=== PATIENT | male | born 1950 | race Caucasian/White ===

== ENCOUNTER 2018-09-25 06:25 | Inpatient (IN) ==
[~2018-09-25 06:25] MED LIST: ASPIRIN 325 MG TABLET PO ONE; DIAZEPAM 5 MG TABLET PO ONE; MAGNESIUM SULF RIDER 2 GM in PREMIX 1 EACH IV PRN; POTASSIUM CHLORIDE RIDER 10 MEQ in PREMIX 1 EACH IV PRN; SODIUM CHLORIDE 0.9% 1,000 ML IV SCH; diphenhydrAMINE CAP 25 MG CAPSULE PO ONE
[2018-09-25] MEDS ORDERED: fentaNYL 100 MCG/2 ML VIAL ONE (08:55)
[2018-09-25] MEDS ORDERED: LIDOCAINE 1% 20 ML VIAL ONE (08:55)
[2018-09-25] MEDS ORDERED: MIDAZOLAM 2 MG/2 ML VIAL ONE (08:55)
[2018-09-25] MEDS ORDERED: diphenhydrAMINE CAP 25 MG CAPSULE ONE (09:23)
[2018-09-25] MEDS ORDERED: ASPIRIN 325 MG TABLET ONE (09:23)
[2018-09-25] MEDS ORDERED: DIAZEPAM 5 MG TABLET ONE (09:23)
[2018-09-25] MEDS ORDERED: HEPARIN 5,000 UNIT/1 ML VIAL ONE (10:02)
[2018-09-25] MEDS ORDERED: MAGNESIUM SULF RIDER 4 GM in PREMIX 1 EACH IV PRN (10:54)
[2018-09-25] MEDS ORDERED: traZODone 50 MG TABLET PO PRN (10:54)
[2018-09-25] MEDS ORDERED: ONDANSETRON 4 MG/2 ML VIAL IV PRN (10:54)
[2018-09-25] MEDS ORDERED: MAGNESIUM SULF RIDER 2 GM in PREMIX 1 EACH IV PRN (10:54)
[2018-09-25] MEDS ORDERED: ASPIRIN CHEW 81 MG TABLET PO ONE (11:08)
[2018-09-25] MEDS ORDERED: CLORAZEPATE 3.75 MG TABLET PO PRN (11:23)
[2018-09-25] MEDS ORDERED: GLUCAGON 1 MG VIAL IM PRN (11:26)
[2018-09-25] MEDS ORDERED: DEXTROSE 50% 25 GM/50 ML VIAL IV PRN (11:26)
[2018-09-25] MEDS ORDERED: MECLIZINE 25 MG TABLET PO PRN (11:30)
[2018-09-25] MEDS: METOPROLOL TARTRATE 25 MG TABLET PO SCH ×2 (11:50→21:16)
[2018-09-25] MEDS: VENLAFAXINE 75 MG TABLET PO SCH ×2 (11:50→21:15)
[2018-09-25 11:51] LABS: Risk Ratio 4.74; VLDL CHOLESTEROL 28.8 MG/DL
[2018-09-25] MEDS ORDERED: MAGNESIUM HYDROXIDE SUSP 30 ML UDCUP PO PRN (13:33)
[2018-09-25] MEDS: SODIUM CHLORIDE 0.9% 1,000 ML IV SCH (14:14)
[2018-09-25] MEDS ORDERED: CHLORHEXIDINE 4% SOLN 118 ML BOTTLE TOP SCH (15:00)
[2018-09-25] MEDS: GABAPENTIN 100 MG CAPSULE PO SCH (21:15)
[2018-09-25] MEDS: ROSUVASTATIN 10 MG TABLET PO SCH (21:16)
[2018-09-25] MEDS: ENOXAPARIN 30 MG/0.3 ML SYRINGE SUBCUT SCH (21:16)
[2018-09-25] MEDS: CHLORHEXIDINE 0.12% ORAL RINSE 60 ML BOTTLE SWISH/SPIT SCH (21:16)
[2018-09-25] MEDS: diphenhydrAMINE CAP 25 MG CAPSULE PO SCH (21:17)
[2018-09-26 04:00] LABS: ABG Base Excess 0.5 MMOL/L (-2.5-2.5); ABG HCO3 24.8 MMOL/L (20-26); ABG Oxygen Saturation 97.4 % (95-100); ABG PCO2 43.5 MM HG (35-48); ABG PH 7.381 (7.35-7.45); ABG PO2 91.1 MM HG (80-95); ABG TCO2 22.7 MMOL/L (23-27); Allen Test Positive; Pt O2 Delivery Device Room Air
[2018-09-26 04:24] LABS: Basophils % 0.3 % (0.0-0.8); Eosinophils # 0.1 10*3/uL (0.0-0.87); Eosinophils % 1.6 % (0.00-10.9); Hematocrit 38.5 VOL% (42.0-52.0); Hemoglobin 12.2 GM/DL (14.0-18.0); Immature Granulocytes % 0.1 %; Immature Granulocytes Absolute 0.01 #; Lymphocytes # 2.4 10*3/uL (1.4-4.0); Lymphocytes % 34.7 % (21.2-54.2); Mean Corpuscular HGB Conc 31.7 GM/DL (32-36); Mean Corpuscular Volume 92.1 FL (87-102); Mean Platelet Volume 10.1 FL (9.6-12.0); Monocytes % 7.3 % (1.7-12.7); Platelet Count 235 T/CUMM (130-400); Red Blood Count 4.18 MC/CUMM (3.8-5.5); White Blood Count 6.8 T/CUMM (4-12)
[2018-09-26 04:43] LABS: Alanine Aminotransferase 34 U/L (16-61); Albumin 3.1 G/DL (3.4-5.0); Alkaline Phosphatase 70 U/L (45-117); Aspartate Amino Transferase 22 U/L (0-37); Bilirubin,Total < 0.39 MG/DL (0.2-1.0); Blood Urea Nitrogen 18 MG/DL (7-18); Calcium 8.3 MG/DL (8.5-10.1); Glucose 95 MG/DL (74-106); Osmolality,Calculated 282.3 MOS/KG (273-304); Total Protein 6.2 G/DL (6.4-8.3)
[2018-09-26] MEDS ORDERED: CEFUROXIME INJ 1,500 MG in SODIUM CHLORIDE 0.9% 100 ML IV ONE (06:00)
[2018-09-26] MEDS ORDERED: ALPRAZolam 0.25 MG TABLET PO PRN ×2 (08:26→17:03)
[2018-09-26] MEDS: ENOXAPARIN 30 MG/0.3 ML SYRINGE SUBCUT SCH (08:47)
[2018-09-26] MEDS: METOPROLOL TARTRATE 25 MG TABLET PO SCH ×2 (08:47→21:45)
[2018-09-26] MEDS: VITAMIN E 400 UNIT CAPSULE PO SCH (08:55)
[2018-09-26] MEDS: VENLAFAXINE 75 MG TABLET PO SCH ×2 (08:55→21:43)
[2018-09-26] MEDS: amLODIPine 5 MG TABLET PO SCH (08:56)
[2018-09-26] MEDS: GABAPENTIN 100 MG CAPSULE PO SCH ×2 (08:56→21:44)
[2018-09-26] MEDS ORDERED: ASPIRIN CHEW 81 MG TABLET PO SCH (09:00)
[2018-09-26] MEDS ORDERED: PANTOPRAZOLE 40 MG TABLET PO SCH (09:00)
[2018-09-26] MEDS: CHLORHEXIDINE 0.12% ORAL RINSE 60 ML BOTTLE SWISH/SPIT SCH (09:02)
[2018-09-26] MEDS: PANTOPRAZOLE 40 MG TABLET PO SCH (09:19)
[2018-09-26] MEDS: SODIUM CHLORIDE 0.9% 1,000 ML IV SCH (12:35)
[2018-09-26] MEDS ORDERED: CHLORHEXIDINE 4% SOLN 118 ML BOTTLE TOP SCH (15:00)
[2018-09-26] MEDS ORDERED: MAGNESIUM SULF RIDER 2 GM in PREMIX 1 EACH IV PRN (16:57)
[2018-09-26] MEDS ORDERED: POTASSIUM CHLORIDE RIDER 10 MEQ in PREMIX 1 EACH IV PRN (16:57)
[2018-09-26] MEDS ORDERED: TICAGRELOR 90 MG TABLET PO ONE (19:00)
[2018-09-26] MEDS: diphenhydrAMINE CAP 25 MG CAPSULE PO SCH (21:44)
[2018-09-26] MEDS: ROSUVASTATIN 10 MG TABLET PO SCH (21:44)
[2018-09-27] MEDS: SODIUM CHLORIDE 0.45% 1,000 ML IV SCH ×2 (03:19→12:33)
[2018-09-27 05:06] LABS: Basophils % 0.5 % (0.0-0.8); Eosinophils # 0.2 10*3/uL (0.0-0.87); Eosinophils % 2.9 % (0.00-10.9); Hematocrit 39.7 VOL% (42.0-52.0); Hemoglobin 12.5 GM/DL (14.0-18.0); Immature Granulocytes % 0.5 %; Immature Granulocytes Absolute 0.04 #; Lymphocytes # 2.2 10*3/uL (1.4-4.0); Mean Corpuscular HGB Conc 31.5 GM/DL (32-36); Mean Corpuscular Volume 91.7 FL (87-102); Mean Platelet Volume 9.8 FL (9.6-12.0); Neutrophils % 58.1 % (38.7-73.9); Platelet Count 247 T/CUMM (130-400); Red Blood Count 4.33 MC/CUMM (3.8-5.5); Red Cell Distribution Width 12.8 % (9.3-17.3); White Blood Count 7.7 T/CUMM (4-12)
[2018-09-27] MEDS ORDERED: LACTATED RINGERS 1,000 ML IV SCH (05:30)
[2018-09-27] MEDS ORDERED: DIAZEPAM 5 MG TABLET PO ONE (05:30)
[2018-09-27] MEDS ORDERED: diphenhydrAMINE CAP 25 MG CAPSULE PO ONE (05:30)
[2018-09-27 05:35] LABS: Calcium 8.6 MG/DL (8.5-10.1); Osmolality,Calculated 283.1 MOS/KG (273-304)
[2018-09-27] MEDS ORDERED: TICAGRELOR 90 MG TABLET PO SCH (06:00)
[2018-09-27] MEDS ORDERED: HEPARIN/NACL 0.9% 2 UNITS/ML 1,000 ML IV ONE (06:55)
[2018-09-27] MEDS ORDERED: LIDOCAINE 1% 20 ML VIAL ONE (06:55)
[2018-09-27] MEDS ORDERED: fentaNYL 100 MCG/2 ML VIAL ONE (07:20)
[2018-09-27] MEDS ORDERED: MIDAZOLAM 2 MG/2 ML VIAL ONE ×2 (07:20→07:35)
[2018-09-27] MEDS ORDERED: ENOXAPARIN 60 MG/0.6 ML SYRINGE ONE (07:37)
[2018-09-27] MEDS ORDERED: ADENOSINE 90 MG/30 ML VIAL IV ONE (07:45)
[2018-09-27] MEDS ORDERED: NITROGLYCERIN DRIP 50 MG/250 ML BOTTLE IV ONE (08:21)
[2018-09-27] MEDS ORDERED: ACETAMINOPHEN 325 MG TABLET PO PRN (09:00)
[2018-09-27] MEDS: METOPROLOL TARTRATE 25 MG TABLET PO SCH ×2 (12:30→20:49)
[2018-09-27] MEDS: VITAMIN E 400 UNIT CAPSULE PO SCH (12:30)
[2018-09-27] MEDS: amLODIPine 5 MG TABLET PO SCH (12:30)
[2018-09-27] MEDS: VENLAFAXINE 75 MG TABLET PO SCH ×2 (12:30→20:49)
[2018-09-27] MEDS: GABAPENTIN 100 MG CAPSULE PO SCH ×2 (12:31→20:49)
[2018-09-27] MEDS: PANTOPRAZOLE 40 MG TABLET PO SCH (12:31)
[2018-09-27] MEDS: ASPIRIN EC 81 MG TABLET PO SCH (12:33)
[2018-09-27] MEDS: ROSUVASTATIN 10 MG TABLET PO SCH (20:48)
[2018-09-27] MEDS: diphenhydrAMINE CAP 25 MG CAPSULE PO SCH (20:49)
[2018-09-28 04:34] LABS: Basophils % 0.5 % (0.0-0.8); Eosinophils # 0.2 10*3/uL (0.0-0.87); Eosinophils % 2.5 % (0.00-10.9); Hematocrit 41.8 VOL% (42.0-52.0); Immature Granulocytes % 0.4 %; Immature Granulocytes Absolute 0.03 #; Lymphocytes # 2.7 10*3/uL (1.4-4.0); Mean Corpuscular HGB Conc 31.1 GM/DL (32-36); Mean Corpuscular Volume 93.1 FL (87-102); Monocytes % 8.3 % (1.7-12.7); Neutrophils % 53.3 % (38.7-73.9); Platelet Count 254 T/CUMM (130-400); Red Blood Count 4.49 MC/CUMM (3.8-5.5); Red Cell Distribution Width 13.1 % (9.3-17.3); White Blood Count 7.7 T/CUMM (4-12)
[2018-09-28 04:54] LABS: Calcium 8.5 MG/DL (8.5-10.1); Osmolality,Calculated 282.1 MOS/KG (273-304)
[2018-09-28] MEDS: METOPROLOL TARTRATE 25 MG TABLET PO SCH (09:15)
[2018-09-28] MEDS: GABAPENTIN 100 MG CAPSULE PO SCH (09:15)
[2018-09-28] MEDS: PANTOPRAZOLE 40 MG TABLET PO SCH (09:15)
[2018-09-28] MEDS: amLODIPine 5 MG TABLET PO SCH (09:15)
[2018-09-28] MEDS: VENLAFAXINE 75 MG TABLET PO SCH (09:15)
[2018-09-28] MEDS: ASPIRIN EC 81 MG TABLET PO SCH (09:16)
[2018-09-28] MEDS: VITAMIN E 400 UNIT CAPSULE PO SCH (09:27)
[2018-09-28 16:18] VITALS: BP 103/61
[2018-09-28] MEDS ORDERED: ASCORBIC ACID 500 MG TABLET PO SCH (21:00)
[2018-09-28] MEDS ORDERED: METOPROLOL TARTRATE 25 MG TABLET PO SCH (21:00)
[2018-09-29] MEDS ORDERED: amLODIPine 5 MG TABLET PO SCH (09:00)
[2018-09-29] MEDS ORDERED: ASPIRIN EC 325 MG TABLET PO SCH (09:00)
== END 2018-09-28 16:17 | disposition home or self-care, planned readmission (81) | DRG 251 ==
LOC: N.CL 06:25 → N.TELEN 11:02
PROVIDERS: ADMIT Internal Medicine Cardiovascular Disease; ATTEND Internal Medicine Cardiovascular Disease

== ENCOUNTER 2018-10-01 06:00 | Inpatient (IN) ==
[2018-10-01] MEDS ORDERED: DEXTROSE 50% 25 GM/50 ML VIAL IV PRN (06:28)
[2018-10-01] MEDS ORDERED: GLUCAGON 1 MG VIAL IM PRN (06:28)
[2018-10-01] MEDS ORDERED: ALPRAZolam 0.25 MG TABLET PO PRN (06:32)
[2018-10-01] MEDS ORDERED: ACETAMINOPHEN 325 MG TABLET PO PRN (06:32)
[2018-10-01 09:16] LABS: Basophils % 0.4 % (0.0-0.8); Eosinophils # 0.2 10*3/uL (0.0-0.87); Eosinophils % 2.3 % (0.00-10.9); Hematocrit 41.6 VOL% (42.0-52.0); Hemoglobin 13.3 GM/DL (14.0-18.0); Immature Granulocytes % 0.4 %; Immature Granulocytes Absolute 0.03 #; Lymphocytes # 2.3 10*3/uL (1.4-4.0); Lymphocytes % 30.9 % (21.2-54.2); Mean Corpuscular Volume 92.2 FL (87-102); Mean Platelet Volume 10.1 FL (9.6-12.0); Monocytes % 7.1 % (1.7-12.7); Neutrophils % 58.9 % (38.7-73.9); Platelet Count 270 T/CUMM (130-400); Red Blood Count 4.51 MC/CUMM (3.8-5.5); Red Cell Distribution Width 13.2 % (9.3-17.3); White Blood Count 7.5 T/CUMM (4-12)
[2018-10-01 09:34] LABS: ABG Base Excess 2.9 MMOL/L (-2.5-2.5); ABG Oxygen Saturation 97.3 % (95-100); ABG PCO2 39.2 MM HG (35-48); ABG PH 7.446 (7.35-7.45); ABG TCO2 23.6 MMOL/L (23-27)
[2018-10-01 09:36] LABS: Albumin 3.9 G/DL (3.4-5.0); Bilirubin,Total 0.4 MG/DL (0.2-1.0); Calcium 9.2 MG/DL (8.5-10.1); Osmolality,Calculated 280.5 MOS/KG (273-304); Total Protein 7.6 G/DL (6.4-8.3)
[2018-10-01] MEDS: GABAPENTIN 100 MG CAPSULE PO SCH (09:37)
[2018-10-01] MEDS: ROSUVASTATIN 10 MG TABLET PO SCH (09:37)
[2018-10-01] MEDS: ASCORBIC ACID 500 MG TABLET PO SCH ×2 (09:37→21:34)
[2018-10-01] MEDS: VITAMIN E 400 UNIT CAPSULE PO SCH (09:37)
[2018-10-01] MEDS: amLODIPine 5 MG TABLET PO SCH (09:38)
[2018-10-01] MEDS: ASPIRIN EC 325 MG TABLET PO SCH (09:38)
[2018-10-01] MEDS: METOPROLOL TARTRATE 25 MG TABLET PO SCH ×2 (09:38→21:34)
[2018-10-01] MEDS: VENLAFAXINE XR 75 MG CAPSULE PO SCH (09:38)
[2018-10-01] MEDS: PANTOPRAZOLE 40 MG TABLET PO SCH (09:38)
[2018-10-01] MEDS: CHLORHEXIDINE 0.12% ORAL RINSE 60 ML BOTTLE SWISH/SPIT SCH ×2 (09:40→21:38)
[2018-10-01] MEDS: CHLORHEXIDINE 4% SOLN 118 ML BOTTLE TOP SCH ×2 (15:00→21:39)
[2018-10-01] MEDS ORDERED: DIAZEPAM 5 MG TABLET PO ONE (15:05)
[2018-10-01] MEDS ORDERED: FAMOTIDINE 20 MG TABLET PO ONE (15:05)
[2018-10-01] MEDS: SODIUM CHLORIDE 0.9% 1,000 ML IV SCH (16:00)
[2018-10-01] MEDS ORDERED: diphenhydrAMINE CAP 25 MG CAPSULE PO SCH (21:00)
[2018-10-02] MEDS ORDERED: VANCOMYCIN 1,000 MG VIAL ONE (04:24)
[2018-10-02] MEDS ORDERED: PAPAVERINE 60 MG/2 ML VIAL ONE (04:24)
[2018-10-02] MEDS: CHLORHEXIDINE 4% SOLN 118 ML BOTTLE TOP SCH (05:05)
[2018-10-02] MEDS ORDERED: HEPARIN/NACL 0.9% 2 UNITS/ML 500 ML IV ONE (05:24)
[2018-10-02] MEDS ORDERED: PHENYLEPHRINE DRIP 20 MG/250 ML PREMIX IV ONE (05:24)
[2018-10-02] MEDS ORDERED: CALCIUM CHLORIDE 1,000 MG/10 ML VIAL IV ONE (05:24)
[2018-10-02] MEDS ORDERED: EPINEPHrine 1 MG/ML VIAL ONE (05:25)
[2018-10-02] MEDS ORDERED: SUFentanil 250 MCG/5 ML AMP ONE (05:25)
[2018-10-02] MEDS ORDERED: ETOMIDATE 40 MG/20 ML VIAL IV ONE (05:26)
[2018-10-02] MEDS ORDERED: MIDAZOLAM 10 MG/2 ML VIAL ONE ×2 (05:26)
[2018-10-02] MEDS ORDERED: NITROGLYCERIN DRIP 50 MG/250 ML BOTTLE IV ONE (05:26)
[2018-10-02] MEDS ORDERED: AMINOCAPROIC ACID 5,000 MG/20 ML VIAL ONE (05:26)
[2018-10-02] MEDS ORDERED: VECURONIUM 10 MG VIAL IV ONE (05:26)
[2018-10-02] MEDS ORDERED: SODIUM CHLORIDE 0.9% 500 ML IV ONE (05:27)
[2018-10-02] MEDS ORDERED: SODIUM CHLORIDE 0.9% 1,000 ML IV ONE ×2 (05:27→12:05)
[2018-10-02] MEDS ORDERED: LACTATED RINGERS 1,000 ML IV ONE ×2 (05:27→12:05)
[2018-10-02] MEDS ORDERED: SODIUM CHLORIDE 0.9% 100 ML IV ONE ×2 (05:27→12:05)
[2018-10-02] MEDS ORDERED: FAMOTIDINE 20 MG TABLET PO ONE (05:30)
[2018-10-02] MEDS ORDERED: DIAZEPAM 5 MG TABLET PO ONE (05:30)
[2018-10-02] MEDS: amLODIPine 5 MG TABLET PO SCH ×2 (05:42→13:21)
[2018-10-02] MEDS: METOPROLOL TARTRATE 25 MG TABLET PO SCH ×2 (05:43→13:21)
[2018-10-02] MEDS ORDERED: CEFUROXIME INJ 1,500 MG in SYRINGE 1 EACH IV ONE (06:00)
[2018-10-02] MEDS: PANTOPRAZOLE 40 MG TABLET PO SCH (07:53)
[2018-10-02] MEDS: SODIUM CHLORIDE 0.9% 1,000 ML IV SCH (07:53)
[2018-10-02 07:55] LABS: ABG Base Excess 0.5 MMOL/L (-2.5-2.5); ABG HCO3 24.9 MMOL/L (20-26); ABG PCO2 37.6 MM HG (35-48); ABG PH 7.425 (7.35-7.45); ABG TCO2 21.6 MMOL/L (23-27); Glucose Heart Surgery 117 MG/DL (74-106); Hematocrit Heart Surgery 38.5 PERCENT (42-52); Hemoglobin Heart Surgery 12.5 G/DL (14.0-18.0); Ionized Calcium Arterial 1.12 MMOL/L (1.21-1.46); PCO2 Patient Temp Arterial 37.6 MMHG; PH Patient Temp Arterial 7.425; Patient Temperature 37 CELCIUS; Potassium Heart/CVR 3.6 MMOL/L (3.5-5.1); Sodium Heart/CVR 140 MMOL/L (135-145)
[2018-10-02] MEDS ORDERED: NITROPRUSSIDE 50 MG/2 ML VIAL ONE (08:11)
[2018-10-02] MEDS ORDERED: PHENYLEPHRINE DRIP 40 MG/250 ML PREMIX IV ONE (08:12)
[2018-10-02] MEDS ORDERED: ALBUMIN 5% 12.5 GM/250 ML VIAL IV ONE (08:12)
[2018-10-02] MEDS ORDERED: POTASSIUM CHLORIDE RIDER 100 ML IV ONE (08:12)
[2018-10-02 08:57] LABS: Apearance,Urine CLEAR (Clear); Bilirubin,Urine Negative (Negative); Blood, Urine Negative (Negative); Glucose,Urine (UA) Negative (Negative); Ketones,Urine Negative (Negative); Mucus,Urine Occasional /LPF (Occasional); Nitrite,Urine Negative (Negative); Protein,Urine Negative; RBC,Urine 6 /HPF (0-4); Urine Color Yellow (Yellow); Urine Specific Gravity 1.016 (1.001-1.035); Urine Urobilinogen < 2.0 EU/DL (0.2-1.0); WBC,Urine 2 /HPF (0-6)
[2018-10-02 09:24] LABS: Hematocrit Heart Surgery 27.4 PERCENT (42-52); Hemoglobin Heart Surgery 8.8 G/DL (14.0-18.0); PCO2 Patient Temp Venous 32.1 MM HG; PH Patient Temp Venous 7.477; PO2 Patient Temp Venous 37.8 MM HG; Potassium Heart/CVR 4.8 MMOL/L (3.5-5.1); VBG Base Excess 0.6 MEQ/L (0-4); VBG HCO3 24.8 MEQ/L (24-28); VBG PCO2 37.1 MMHG (41-51); VBG PH 7.432; VBG PO2 46.4 MMHG (17-40)
[2018-10-02 09:55] LABS: Hematocrit Heart Surgery 30.5 PERCENT (42-52); Hemoglobin Heart Surgery 9.8 G/DL (14.0-18.0); PCO2 Patient Temp Venous 29.9 MM HG; PH Patient Temp Venous 7.495; PO2 Patient Temp Venous 36.9 MM HG; Potassium Heart/CVR 4.8 MMOL/L (3.5-5.1); VBG Base Excess 0.4 MEQ/L (0-4); VBG HCO3 24.6 MEQ/L (24-28); VBG Oxygen Saturation 83.5 %; VBG PCO2 34.6 MMHG (41-51); VBG PH 7.45; VBG PO2 45.4 MMHG (17-40)
[2018-10-02] MEDS ORDERED: THROMBIN TOPICAL (RECOMBINANT) 5,000 UNIT VIAL TOP ONE (10:40)
[2018-10-02 11:07] LABS: ABG Base Excess -0.3 MMOL/L (-2.5-2.5); ABG HCO3 24.2 MMOL/L (20-26); ABG Oxygen Saturation 99.9 % (95-100); ABG PCO2 38.2 MM HG (35-48); ABG PH 7.409 (7.35-7.45); ABG TCO2 22.1 MMOL/L (23-27); Glucose Heart Surgery 239 MG/DL (74-106); Hematocrit Heart Surgery 29.8 PERCENT (42-52); Hemoglobin Heart Surgery 9.6 G/DL (14.0-18.0); Ionized Calcium Arterial 1.17 MMOL/L (1.21-1.46); PCO2 Patient Temp Arterial 38.2 MMHG; PH Patient Temp Arterial 7.409; Patient Temperature 37 CELCIUS; Potassium Heart/CVR 3.5 MMOL/L (3.5-5.1); Sodium Heart/CVR 141 MMOL/L (135-145)
[2018-10-02] MEDS ORDERED: DEXTROSE 5% KCL 20 MEQ 20 MEQ/1,000 ML BAG IV ONE (11:10)
[2018-10-02] MEDS ORDERED: SODIUM BICARBONATE 50 MEQ/50 ML VIAL IV ONE (11:10)
[2018-10-02] MEDS ORDERED: ALBUMIN 25% 25 GM/100 ML VIAL IV ONE (11:11)
[2018-10-02] MEDS ORDERED: PROTAMINE SULFATE 50 MG/5 ML VIAL IV ONE ×3 (11:11→12:30)
[2018-10-02] MEDS ORDERED: HEPARIN 10,000 UNIT/10 ML VIAL ONE (11:11)
[2018-10-02] MEDS ORDERED: methylPREDNISolone SOD SUC 1,000 MG/8 ML VIAL ONE (11:11)
[2018-10-02] MEDS ORDERED: FUROSEMIDE 20 MG/2 ML VIAL ONE (11:11)
[2018-10-02] MEDS ORDERED: PROTAMINE SULFATE 250 MG/25 ML VIAL IV ONE (11:11)
[2018-10-02] MEDS ORDERED: MAGNESIUM SULFATE 5 GM/10 ML VIAL IV ONE (11:11)
[2018-10-02] MEDS ORDERED: ESMOLOL 100 MG/10 ML VIAL IV ONE (12:05)
[2018-10-02] MEDS ORDERED: SEVOFLURANE 1 UNIT/15 MINUTE INH ONE (12:05)
[2018-10-02] MEDS ORDERED: ePHEDrine 50 MG/ML AMP ONE (12:05)
[2018-10-02] MEDS ORDERED: PHENYLEPHRINE 1 MG/10 ML SYRINGE IV ONE (12:05)
[2018-10-02] MEDS ORDERED: DEXTROSE 50% 25 GM/50 ML VIAL IV PRN ×2 (12:20)
[2018-10-02] MEDS ORDERED: ACETAMINOPHEN 650 MG SUPP RECTAL PRN (12:20)
[2018-10-02] MEDS ORDERED: MIDAZOLAM 10 MG/2 ML VIAL IV PRN (12:20)
[2018-10-02] MEDS ORDERED: PHENYLEPHRINE DRIP 40 MG/250 ML PREMIX IV PRN (12:20)
[2018-10-02] MEDS ORDERED: MORPHINE 4 MG/1 ML VIAL IV PRN (12:20)
[2018-10-02] MEDS ORDERED: ONDANSETRON 4 MG/2 ML VIAL IV PRN (12:20)
[2018-10-02] MEDS ORDERED: MORPHINE 10 MG/1 ML VIAL IV PRN (12:20)
[2018-10-02] MEDS ORDERED: NITROPRUSSIDE 100 MG in DEXTROSE 5% 250 ML IV PRN (12:20)
[2018-10-02] MEDS ORDERED: CALCIUM CHLORIDE 1,000 MG/10 ML SYRINGE IV PRN (12:20)
[2018-10-02] MEDS ORDERED: INSULIN REGULAR 100 UNIT/ML IV ONE (12:20)
[2018-10-02] MEDS ORDERED: MAGNESIUM SULF RIDER 2 GM in PREMIX 1 EACH IV PRN (12:20)
[2018-10-02] MEDS ORDERED: MAGNESIUM SULF RIDER 4 GM in PREMIX 1 EACH IV PRN (12:20)
[2018-10-02] MEDS ORDERED: VECURONIUM 10 MG VIAL IV PRN ×2 (12:20)
[2018-10-02] MEDS ORDERED: INSULIN REGULAR 100 UNIT/ML IV PRN (12:20)
[2018-10-02 12:23] LABS: ABG Base Excess -1.1 MMOL/L (-2.5-2.5); ABG HCO3 23.5 MMOL/L (20-26); ABG Oxygen Saturation 98.8 % (95-100); ABG TCO2 21.6 MMOL/L (23-27); Glucose Heart Surgery 174 MG/DL (74-106); Hematocrit Heart Surgery 29.6 PERCENT (42-52); Hemoglobin Heart Surgery 9.6 G/DL (14.0-18.0); Potassium Heart/CVR 3.2 MMOL/L (3.5-5.1)
[2018-10-02 12:25] LABS: Mean Corpuscular Volume 92.7 FL (87-102); Monocytes % 4.5 % (1.7-12.7); Red Cell Distribution Width 13.2 % (9.3-17.3)
[2018-10-02 12:30] LABS: Basophils % 0.3 % (0.0-0.8); Eosinophils # 0.1 10*3/uL (0.0-0.87); Eosinophils % 0.5 % (0.00-10.9); Hematocrit 29.2 VOL% (42.0-52.0); Immature Granulocytes % 0.5 %; Immature Granulocytes Absolute 0.07 #; Lymphocytes # 1.8 10*3/uL (1.4-4.0); Lymphocytes % 13.6 % (21.2-54.2); Mean Corpuscular HGB Conc 31.5 GM/DL (32-36); Mean Platelet Volume 10.2 FL (9.6-12.0); Neutrophils % 80.6 % (38.7-73.9)
[2018-10-02] MEDS ORDERED: SODIUM CHLORIDE 0.45% 1,000 ML IV SCH ×2 (12:30)
[2018-10-02] MEDS: LACTATED RINGERS 1,000 ML IV PRN ×2 (12:30→14:27)
[2018-10-02] MEDS ORDERED: INSULIN REGULAR DRIP 100 ML IV SCH (12:30)
[2018-10-02 12:31] LABS: Hemoglobin 9.2 GM/DL (14.0-18.0); Platelet Count 215 T/CUMM (130-400); Red Blood Count 3.15 MC/CUMM (3.8-5.5); White Blood Count 13.3 T/CUMM (4-12)
[2018-10-02 12:39] LABS: INR 1.1; Partial Thromboplastin Time 25.5 SECS (0-40)
[2018-10-02 12:41] LABS: CKMB % 6.1 %
[2018-10-02 12:42] LABS: Troponin I 4.09 NG/ML (0.00-0.045)
[2018-10-02] MEDS: POTASSIUM CHLORIDE RIDER 20 MEQ in PREMIX 1 EACH IV PRN ×5 (12:43→21:35)
[2018-10-02] MEDS: ALBUMIN 5% 12.5 GM in PREMIX 1 EACH IV PRN ×4 (12:45→17:34)
[2018-10-02 12:47] LABS: Albumin 3.1 G/DL (3.4-5.0); Bilirubin,Total 0.6 MG/DL (0.2-1.0); Osmolality,Calculated 295.4 MOS/KG (273-304)
[2018-10-02 13:01] LABS: Lymphocytes 13 % (20-55); Platelet Estimate Normal; Segmented Neutrophils 83 % (50-85); Total Cells Counted 100
[2018-10-02 13:02] LABS: Hypochromasia Slight; Macrocytosis Slight
[2018-10-02] MEDS: KETOROLAC 30 MG/1 ML VIAL IV SCH ×2 (13:07→17:34)
[2018-10-02] MEDS: GABAPENTIN 100 MG CAPSULE PO SCH (13:21)
[2018-10-02] MEDS: VENLAFAXINE XR 75 MG CAPSULE PO SCH (13:21)
[2018-10-02] MEDS: ASPIRIN EC 325 MG TABLET PO SCH (13:21)
[2018-10-02] MEDS: ROSUVASTATIN 10 MG TABLET PO SCH (13:21)
[2018-10-02] MEDS: ASCORBIC ACID 500 MG TABLET PO SCH (13:22)
[2018-10-02] MEDS: VITAMIN E 400 UNIT CAPSULE PO SCH (13:22)
[2018-10-02] MEDS: CHLORHEXIDINE 0.12% ORAL RINSE 60 ML BOTTLE SWISH/SPIT SCH ×2 (13:22→21:35)
[2018-10-02 14:11] LABS: ABG Base Excess -0.4 MMOL/L (-2.5-2.5); ABG HCO3 23.7 MMOL/L (20-26); ABG Oxygen Saturation 98.1 % (95-100); ABG PCO2 36.9 MM HG (35-48); ABG PH 7.426 (7.35-7.45); ABG PO2 134.4 MM HG (80-95); ABG TCO2 24.9 MMOL/L (23-27); Glucose Heart Surgery 150 MG/DL (74-106); Potassium Heart/CVR 3.8 MMOL/L (3.5-5.1)
[2018-10-02] MEDS: POTASSIUM CHLORIDE RIDER 10 MEQ in PREMIX 1 EACH IV PRN ×3 (14:26→22:51)
[2018-10-02 17:13] LABS: ABG Base Excess -0.2 MMOL/L (-2.5-2.5); ABG HCO3 24.3 MMOL/L (20-26); ABG Oxygen Saturation 98.2 % (95-100); ABG PCO2 39.7 MM HG (35-48); ABG PH 7.399 (7.35-7.45); ABG TCO2 22.1 MMOL/L (23-27); Glucose Heart Surgery 176 MG/DL (74-106); Hematocrit Heart Surgery 33.3 PERCENT (42-52); Hemoglobin Heart Surgery 10.8 G/DL (14.0-18.0); Potassium Heart/CVR 3.8 MMOL/L (3.5-5.1)
[2018-10-02] MEDS: MIDAZOLAM 2 MG/2 ML VIAL IV PRN ×2 (17:16→20:32)
[2018-10-02] MEDS ORDERED: INSULIN REGULAR 100 UNIT/ML SUBCUT SCH (20:00)
[2018-10-02 20:09] LABS: ABG Base Excess -0.9 MMOL/L (-2.5-2.5); ABG HCO3 20.4 MMOL/L (20-26); ABG Oxygen Saturation 97.7 % (95-100); ABG PCO2 24.1 MM HG (35-48); ABG PH 7.545 (7.35-7.45); ABG PO2 105.5 MM HG (80-95); ABG TCO2 21.1 MMOL/L (23-27); Glucose Heart Surgery 171 MG/DL (74-106); Hemoglobin Heart Surgery 10.8 G/DL (14.0-18.0); Potassium Heart/CVR 3.9 MMOL/L (3.5-5.1)
[2018-10-02] MEDS ORDERED: FUROSEMIDE 40 MG/4 ML VIAL IV PRN (20:13)
[2018-10-02 20:56] LABS: CKMB % 3.8 %
[2018-10-02 20:58] LABS: Troponin I 3.56 NG/ML (0.00-0.045)
[2018-10-02 21:07] LABS: ABG Base Excess -1.9 MMOL/L (-2.5-2.5); ABG HCO3 21.2 MMOL/L (20-26); ABG Oxygen Saturation 97.8 % (95-100); ABG PCO2 30.7 MM HG (35-48); ABG PH 7.457 (7.35-7.45); ABG PO2 111.4 MM HG (80-95); ABG TCO2 22.1 MMOL/L (23-27); Glucose Heart Surgery 176 MG/DL (74-106); Hemoglobin Heart Surgery 10.7 G/DL (14.0-18.0); Potassium Heart/CVR 3.5 MMOL/L (3.5-5.1)
[2018-10-02] MEDS: INSULIN REGULAR 100 UNIT/ML SUBCUT SCH (21:15)
[2018-10-02] MEDS: CEFUROXIME INJ 1,500 MG in SYRINGE 1 EACH IV SCH (21:16)
[2018-10-02 22:21] LABS: ABG Base Excess -0.9 MMOL/L (-2.5-2.5); ABG HCO3 23.7 MMOL/L (20-26); ABG Oxygen Saturation 99.1 % (95-100); ABG PCO2 30.4 MM HG (35-48); ABG PH 7.468 (7.35-7.45); Glucose Heart Surgery 190 MG/DL (74-106); Hematocrit Heart Surgery 31.3 PERCENT (42-52); Hemoglobin Heart Surgery 10.1 G/DL (14.0-18.0); Potassium Heart/CVR 3.7 MMOL/L (3.5-5.1)
[2018-10-02 23:27] LABS: ABG Base Excess -3.2 MMOL/L (-2.5-2.5); ABG HCO3 21.8 MMOL/L (20-26); ABG Oxygen Saturation 97.1 % (95-100); ABG PCO2 43.6 MM HG (35-48); ABG PH 7.326 (7.35-7.45); ABG PO2 92.9 MM HG (80-95); ABG TCO2 20.9 MMOL/L (23-27); Glucose Heart Surgery 178 MG/DL (74-106); Hematocrit Heart Surgery 31.2 PERCENT (42-52); Hemoglobin Heart Surgery 10.1 G/DL (14.0-18.0)
[2018-10-03] MEDS: INSULIN REGULAR 100 UNIT/ML SUBCUT SCH ×3 (00:03→08:54)
[2018-10-03] MEDS: KETOROLAC 30 MG/1 ML VIAL IV SCH ×4 (02:30→18:38)
[2018-10-03] MEDS: LACTATED RINGERS 250 ML IV PRN ×4 (03:55→05:15)
[2018-10-03 04:10] LABS: ABG Base Excess -1.5 MMOL/L (-2.5-2.5); ABG HCO3 23.5 MMOL/L (20-26); ABG Oxygen Saturation 96.4 % (95-100); ABG PCO2 40.6 MM HG (35-48); ABG TCO2 24.7 MMOL/L (23-27); Basophils % 0.1 % (0.0-0.8); Glucose Heart Surgery 145 MG/DL (74-106); Hematocrit 31.4 VOL% (42.0-52.0); Hemoglobin 9.8 GM/DL (14.0-18.0); Hemoglobin Heart Surgery 10.1 G/DL (14.0-18.0); Immature Granulocytes % 0.7 %; Immature Granulocytes Absolute 0.09 #; Lymphocytes # 0.9 10*3/uL (1.4-4.0); Lymphocytes % 6.8 % (21.2-54.2); Mean Corpuscular HGB Conc 31.2 GM/DL (32-36); Mean Corpuscular Volume 93.2 FL (87-102); Mean Platelet Volume 10.3 FL (9.6-12.0); Monocytes % 4.7 % (1.7-12.7); Neutrophils % 87.7 % (38.7-73.9); Platelet Count 232 T/CUMM (130-400); Red Blood Count 3.37 MC/CUMM (3.8-5.5); Red Cell Distribution Width 13.7 % (9.3-17.3); White Blood Count 13.5 T/CUMM (4-12)
[2018-10-03 04:28] LABS: CKMB % 2.9 %
[2018-10-03] MEDS: POTASSIUM CHLORIDE RIDER 20 MEQ in PREMIX 1 EACH IV PRN (04:29)
[2018-10-03 04:33] LABS: Band Neutrophils 3 % (0-10); Hypochromasia 1+; Lymphocytes 6 % (20-55); Platelet Estimate Adequate; Segmented Neutrophils 88 % (50-85); Total Cells Counted 100
[2018-10-03 04:37] LABS: Troponin I 2.35 NG/ML (0.00-0.045)
[2018-10-03 05:10] LABS: Albumin 3.8 G/DL (3.4-5.0); Bilirubin,Direct 0.23 MG/DL (0.0-0.20); Bilirubin,Total 0.9 MG/DL (0.2-1.0); Osmolality,Calculated 291.7 MOS/KG (273-304)
[2018-10-03] MEDS: ALBUMIN 5% 12.5 GM in PREMIX 1 EACH IV PRN ×2 (06:13→06:39)
[2018-10-03] MEDS ORDERED: MIDAZOLAM 2 MG/2 ML VIAL IV ONE (07:30)
[2018-10-03] MEDS: CHLORHEXIDINE 0.12% ORAL RINSE 60 ML BOTTLE SWISH/SPIT SCH ×3 (08:05→21:14)
[2018-10-03] MEDS: CEFUROXIME INJ 1,500 MG in SYRINGE 1 EACH IV SCH (08:13)
[2018-10-03] MEDS ORDERED: ALPRAZolam 0.25 MG TABLET PO PRN (08:27)
[2018-10-03] MEDS ORDERED: oxyCODONE/ACETAMINOPHEN 5-325 MG TABLET PO PRN ×2 (08:57→11:25)
[2018-10-03] MEDS ORDERED: VENLAFAXINE XR 75 MG CAPSULE PO SCH (09:00)
[2018-10-03] MEDS: ASCORBIC ACID 500 MG TABLET PO SCH ×2 (09:19→21:14)
[2018-10-03] MEDS: VITAMIN E 400 UNIT CAPSULE PO SCH (09:19)
[2018-10-03] MEDS: oxyCODONE/ACETAMINOPHEN 5-325 MG TABLET PO PRN (09:20)
[2018-10-03] MEDS: ROSUVASTATIN 10 MG TABLET PO SCH (09:20)
[2018-10-03] MEDS: METOPROLOL TARTRATE 25 MG TABLET PO SCH ×2 (09:25→21:14)
[2018-10-03] MEDS: amLODIPine 5 MG TABLET PO SCH (09:25)
[2018-10-03] MEDS: GABAPENTIN 100 MG CAPSULE PO SCH (09:29)
[2018-10-03] MEDS ORDERED: MAGNESIUM HYDROXIDE SUSP 30 ML UDCUP PO PRN (11:25)
[2018-10-03] MEDS ORDERED: ZALEPLON 5 MG CAPSULE PO PRN (11:25)
[2018-10-03] MEDS ORDERED: ALUMINUM/MAGNES/SIMETH MAX STR 30 ML UDCUP PO PRN (11:25)
[2018-10-03] MEDS ORDERED: ONDANSETRON 4 MG/2 ML VIAL IV PRN (11:25)
[2018-10-03] MEDS ORDERED: GLUCAGON 1 MG VIAL IM PRN ×2 (11:25)
[2018-10-03] MEDS ORDERED: MAGNESIUM SULF RIDER 4 GM in PREMIX 1 EACH IV PRN (11:25)
[2018-10-03] MEDS ORDERED: DEXTROSE 50% 25 GM/50 ML VIAL IV PRN ×2 (11:25)
[2018-10-03] MEDS ORDERED: MAGNESIUM SULF RIDER 2 GM in PREMIX 1 EACH IV PRN (11:25)
[2018-10-03] MEDS ORDERED: SODIUM CHLOR 0.45% KCL 20 MEQ 20 MEQ/1,000 ML BAG IV SCH (11:25)
[2018-10-03] MEDS ORDERED: ACETAMINOPHEN 325 MG TABLET PO PRN (11:25)
[2018-10-03] MEDS: FERROUS SULFATE 325 MG TABLET PO SCH (12:35)
[2018-10-03] MEDS: ASPIRIN EC 325 MG TABLET PO SCH (12:47)
[2018-10-03] MEDS: DOCUSATE SODIUM 100 MG CAPSULE PO SCH (12:48)
[2018-10-03] MEDS: PANTOPRAZOLE 40 MG TABLET PO SCH (12:48)
[2018-10-03] MEDS ORDERED: ALBUMIN 5% 12.5 GM/250 ML VIAL IV ONE (15:30)
[2018-10-03] MEDS ORDERED: PHENYLEPHRINE DRIP 40 MG/250 ML PREMIX IV PRN (15:50)
[2018-10-03] MEDS ORDERED: ALBUMIN 5% 12.5 GM in PREMIX 1 EACH IV PRN (15:54)
[2018-10-04 05:12] LABS: Basophils % 0.1 % (0.0-0.8); Hematocrit 27.1 VOL% (42.0-52.0); Hemoglobin 8.4 GM/DL (14.0-18.0); Immature Granulocytes % 0.4 %; Immature Granulocytes Absolute 0.05 #; Lymphocytes # 1.2 10*3/uL (1.4-4.0); Lymphocytes % 9.7 % (21.2-54.2); Mean Corpuscular Volume 94.1 FL (87-102); Mean Platelet Volume 10.7 FL (9.6-12.0); Neutrophils % 84.8 % (38.7-73.9); Platelet Count 192 T/CUMM (130-400); Red Blood Count 2.88 MC/CUMM (3.8-5.5); Red Cell Distribution Width 13.9 % (9.3-17.3); White Blood Count 12.6 T/CUMM (4-12)
[2018-10-04 05:31] LABS: Albumin 3.6 G/DL (3.4-5.0); Bilirubin,Direct 0.16 MG/DL (0.0-0.20); Bilirubin,Indirect 0.5 MG/DL (0.0-1.0); Bilirubin,Total 0.7 MG/DL (0.2-1.0); CKMB % 1.4 %; Calcium 8.1 MG/DL (8.5-10.1); Osmolality,Calculated 287.1 MOS/KG (273-304); Total Protein 6.4 G/DL (6.4-8.3)
[2018-10-04 05:32] LABS: Troponin I 0.927 NG/ML (0.00-0.045)
[2018-10-04] MEDS ORDERED: FUROSEMIDE 40 MG/4 ML VIAL IV ONE (06:00)
[2018-10-04] MEDS: ASCORBIC ACID 500 MG TABLET PO SCH ×2 (09:11→20:34)
[2018-10-04] MEDS: ROSUVASTATIN 10 MG TABLET PO SCH (09:11)
[2018-10-04] MEDS: PANTOPRAZOLE 40 MG TABLET PO SCH (09:12)
[2018-10-04] MEDS: DOCUSATE SODIUM 100 MG CAPSULE PO SCH (09:12)
[2018-10-04] MEDS: ASPIRIN EC 325 MG TABLET PO SCH (09:12)
[2018-10-04] MEDS: METOPROLOL TARTRATE 25 MG TABLET PO SCH ×2 (09:12→20:33)
[2018-10-04] MEDS: VITAMIN E 400 UNIT CAPSULE PO SCH (09:12)
[2018-10-04] MEDS: amLODIPine 5 MG TABLET PO SCH (09:12)
[2018-10-04] MEDS: FERROUS SULFATE 325 MG TABLET PO SCH (09:13)
[2018-10-04] MEDS: GABAPENTIN 100 MG CAPSULE PO SCH (09:13)
[2018-10-04] MEDS: CHLORHEXIDINE 0.12% ORAL RINSE 60 ML BOTTLE SWISH/SPIT SCH ×2 (09:18→20:34)
[2018-10-04] MEDS: oxyCODONE/ACETAMINOPHEN 5-325 MG TABLET PO PRN (13:29)
[2018-10-05 04:00] LABS: Basophils % 0.2 % (0.0-0.8); Hematocrit 30.8 VOL% (42.0-52.0); Hemoglobin 9.5 GM/DL (14.0-18.0); Immature Granulocytes % 1.1 %; Immature Granulocytes Absolute 0.13 #; Lymphocytes # 1.4 10*3/uL (1.4-4.0); Lymphocytes % 12.1 % (21.2-54.2); Mean Corpuscular HGB Conc 30.8 GM/DL (32-36); Mean Corpuscular Volume 93.9 FL (87-102); Mean Platelet Volume 10.2 FL (9.6-12.0); Monocytes % 5.3 % (1.7-12.7); Neutrophils % 81.3 % (38.7-73.9); Platelet Count 207 T/CUMM (130-400); Red Blood Count 3.28 MC/CUMM (3.8-5.5); Red Cell Distribution Width 13.7 % (9.3-17.3); White Blood Count 11.8 T/CUMM (4-12)
[2018-10-05 04:33] LABS: Alanine Aminotransferase 30 U/L (16-61); Albumin 3.8 G/DL (3.4-5.0); Alkaline Phosphatase 56 U/L (45-117); Aspartate Amino Transferase 24 U/L (0-37); Bilirubin,Indirect 0.4 MG/DL (0.0-1.0); Blood Urea Nitrogen 19 MG/DL (7-18); Glucose 135 MG/DL (74-106); Osmolality,Calculated 289.8 MOS/KG (273-304); Total Protein 7.1 G/DL (6.4-8.3)
[2018-10-05 04:34] LABS: Troponin I 0.431 NG/ML (0.00-0.045)
[2018-10-05] MEDS: VITAMIN E 400 UNIT CAPSULE PO SCH (08:58)
[2018-10-05] MEDS: GABAPENTIN 100 MG CAPSULE PO SCH (08:58)
[2018-10-05] MEDS: ROSUVASTATIN 10 MG TABLET PO SCH (08:58)
[2018-10-05] MEDS: METOPROLOL TARTRATE 25 MG TABLET PO SCH ×2 (08:58→21:32)
[2018-10-05] MEDS: FERROUS SULFATE 325 MG TABLET PO SCH (08:58)
[2018-10-05] MEDS: ASCORBIC ACID 500 MG TABLET PO SCH ×2 (08:59→21:49)
[2018-10-05] MEDS: amLODIPine 5 MG TABLET PO SCH (08:59)
[2018-10-05] MEDS: DOCUSATE SODIUM 100 MG CAPSULE PO SCH (08:59)
[2018-10-05] MEDS: ASPIRIN EC 325 MG TABLET PO SCH (09:00)
[2018-10-05] MEDS: PANTOPRAZOLE 40 MG TABLET PO SCH (09:00)
[2018-10-05] MEDS: CHLORHEXIDINE 0.12% ORAL RINSE 60 ML BOTTLE SWISH/SPIT SCH ×2 (09:00→21:49)
[2018-10-05] MEDS: VENLAFAXINE XR 75 MG CAPSULE PO SCH (15:22)
[2018-10-06] MEDS: VITAMIN E 400 UNIT CAPSULE PO SCH (09:01)
[2018-10-06] MEDS: METOPROLOL TARTRATE 25 MG TABLET PO SCH ×2 (09:01→20:58)
[2018-10-06] MEDS: PANTOPRAZOLE 40 MG TABLET PO SCH (09:01)
[2018-10-06] MEDS: ROSUVASTATIN 10 MG TABLET PO SCH (09:01)
[2018-10-06] MEDS: amLODIPine 5 MG TABLET PO SCH (09:01)
[2018-10-06] MEDS: GABAPENTIN 100 MG CAPSULE PO SCH (09:02)
[2018-10-06] MEDS: DOCUSATE SODIUM 100 MG CAPSULE PO SCH (09:02)
[2018-10-06] MEDS: ASCORBIC ACID 500 MG TABLET PO SCH ×2 (09:02→20:58)
[2018-10-06] MEDS: FERROUS SULFATE 325 MG TABLET PO SCH (09:02)
[2018-10-06] MEDS: ASPIRIN EC 325 MG TABLET PO SCH (09:02)
[2018-10-06] MEDS: VENLAFAXINE XR 75 MG CAPSULE PO SCH (09:02)
[2018-10-06] MEDS: CHLORHEXIDINE 0.12% ORAL RINSE 60 ML BOTTLE SWISH/SPIT SCH ×2 (09:05→20:58)
[2018-10-07 04:52] LABS: Basophils % 0.3 % (0.0-0.8); Eosinophils # 0.2 10*3/uL (0.0-0.87); Eosinophils % 2.3 % (0.00-10.9); Hematocrit 31.9 VOL% (42.0-52.0); Immature Granulocytes % 0.4 %; Immature Granulocytes Absolute 0.04 #; Lymphocytes # 3.1 10*3/uL (1.4-4.0); Lymphocytes % 33.5 % (21.2-54.2); Mean Corpuscular HGB Conc 31.3 GM/DL (32-36); Mean Corpuscular Volume 93.8 FL (87-102); Monocytes % 6.8 % (1.7-12.7); Neutrophils % 56.7 % (38.7-73.9); Platelet Count 270 T/CUMM (130-400); Red Cell Distribution Width 13.6 % (9.3-17.3); White Blood Count 9.3 T/CUMM (4-12)
[2018-10-07 05:12] LABS: Albumin 3.4 G/DL (3.4-5.0); Bilirubin,Direct 0.16 MG/DL (0.0-0.20); Bilirubin,Indirect 0.6 MG/DL (0.0-1.0); Bilirubin,Total 0.8 MG/DL (0.2-1.0); CKMB % 4.6 %; Calcium 8.5 MG/DL (8.5-10.1); Total Protein 6.5 G/DL (6.4-8.3)
[2018-10-07 05:20] LABS: Troponin I 0.834 NG/ML (0.00-0.045)
[2018-10-07] MEDS: POTASSIUM CHLORIDE 20 MEQ TABLET PO PRN ×2 (05:54→16:08)
[2018-10-07] MEDS: VENLAFAXINE XR 75 MG CAPSULE PO SCH (08:54)
[2018-10-07] MEDS: PANTOPRAZOLE 40 MG TABLET PO SCH (08:54)
[2018-10-07] MEDS: ASPIRIN EC 325 MG TABLET PO SCH (08:54)
[2018-10-07] MEDS: VITAMIN E 400 UNIT CAPSULE PO SCH (08:54)
[2018-10-07] MEDS: FERROUS SULFATE 325 MG TABLET PO SCH (08:54)
[2018-10-07] MEDS: amLODIPine 5 MG TABLET PO SCH (08:54)
[2018-10-07] MEDS: ROSUVASTATIN 10 MG TABLET PO SCH (08:54)
[2018-10-07] MEDS: ASCORBIC ACID 500 MG TABLET PO SCH ×2 (08:54→22:02)
[2018-10-07] MEDS: METOPROLOL TARTRATE 25 MG TABLET PO SCH ×2 (08:55→22:03)
[2018-10-07] MEDS: DOCUSATE SODIUM 100 MG CAPSULE PO SCH (08:55)
[2018-10-07] MEDS: GABAPENTIN 100 MG CAPSULE PO SCH (08:55)
[2018-10-07] MEDS: CHLORHEXIDINE 0.12% ORAL RINSE 60 ML BOTTLE SWISH/SPIT SCH ×2 (10:35→22:02)
[2018-10-08 05:35] LABS: Basophils % 0.3 % (0.0-0.8); Eosinophils # 0.3 10*3/uL (0.0-0.87); Eosinophils % 2.7 % (0.00-10.9); Hematocrit 31.3 VOL% (42.0-52.0); Hemoglobin 10.3 GM/DL (14.0-18.0); Immature Granulocytes % 0.3 %; Immature Granulocytes Absolute 0.03 #; Lymphocytes # 2.9 10*3/uL (1.4-4.0); Lymphocytes % 31.2 % (21.2-54.2); Mean Corpuscular HGB Conc 32.9 GM/DL (32-36); Mean Corpuscular Volume 91.3 FL (87-102); Mean Platelet Volume 9.8 FL (9.6-12.0); Monocytes % 7.4 % (1.7-12.7); Neutrophils % 58.1 % (38.7-73.9); Platelet Count 298 T/CUMM (130-400); Red Blood Count 3.43 MC/CUMM (3.8-5.5); Red Cell Distribution Width 13.7 % (9.3-17.3); White Blood Count 9.2 T/CUMM (4-12)
[2018-10-08 05:58] LABS: Alanine Aminotransferase 25 U/L (16-61); Albumin 3.6 G/DL (3.4-5.0); Alkaline Phosphatase 62 U/L (45-117); Aspartate Amino Transferase 24 U/L (0-37); Bilirubin,Indirect 0.5 MG/DL (0.0-1.0); Blood Urea Nitrogen 19 MG/DL (7-18); Calcium 8.8 MG/DL (8.5-10.1); Glucose 99 MG/DL (74-106); Osmolality,Calculated 280.4 MOS/KG (273-304); Total Protein 6.8 G/DL (6.4-8.3)
[2018-10-08] MEDS: POTASSIUM CHLORIDE 20 MEQ TABLET PO PRN (06:49)
[2018-10-08 07:47] VITALS: BP 126/70
[2018-10-08] MEDS: VENLAFAXINE XR 75 MG CAPSULE PO SCH (08:48)
[2018-10-08] MEDS: ROSUVASTATIN 10 MG TABLET PO SCH (08:48)
[2018-10-08] MEDS: VITAMIN E 400 UNIT CAPSULE PO SCH (08:48)
[2018-10-08] MEDS: FERROUS SULFATE 325 MG TABLET PO SCH (08:49)
[2018-10-08] MEDS: ASPIRIN EC 325 MG TABLET PO SCH (08:49)
[2018-10-08] MEDS: amLODIPine 5 MG TABLET PO SCH (08:49)
[2018-10-08] MEDS: METOPROLOL TARTRATE 25 MG TABLET PO SCH (08:49)
[2018-10-08] MEDS: ASCORBIC ACID 500 MG TABLET PO SCH (08:49)
[2018-10-08] MEDS: DOCUSATE SODIUM 100 MG CAPSULE PO SCH (08:49)
[2018-10-08] MEDS: GABAPENTIN 100 MG CAPSULE PO SCH (08:49)
[2018-10-08] MEDS: PANTOPRAZOLE 40 MG TABLET PO SCH (08:49)
[2018-10-08] MEDS: CHLORHEXIDINE 0.12% ORAL RINSE 60 ML BOTTLE SWISH/SPIT SCH (08:50)
== END 2018-10-08 09:55 | disposition home or self-care (01) | DRG 236 ==
LOC: N.4E 06:29 → N.CVR 10-02 08:59 → N.ICU 10-03 08:46 → N.TELES 10-04 14:56